=== PATIENT | female | born 1960 | race American Indian/Alaskan Native ===

== ENCOUNTER 2018-12-12 13:52 | Outpatient (CLI) | payer BC ==
--- NOTE | 2018-12-12 15:22 | Mammography Report ---
BILATERAL DIGITAL SCREENING MAMMOGRAMS WITH CAD INDICATION: Screening. COMPARISONS: None available. However, she indicated that she had had a mammogram 3 years ago at [facility].In addition to standard review, the examination was analyzed for possible abnormalities us ing a computer-assisted detection device (iCAD). FINDINGS: Craniocaudal and mediolateral oblique views of both breasts were obtained using 2-D digital acquisition. The breast tissue is heterogeneously dense, which may obscure small masses. Bilateral parenchymal asymmetries require comparison with the prior mammogram or additional imaging. No architectural distortion or suspicious calcifications. IMPRESSION: Comparison with the previous mammogram is required. We will attempt to obtain a prior mammogram for c omparison. If we did not obtain a prior mammogram within 30 days, a revised report will be issued rec ommending a recall for additional imaging. Please be advised that the patient should not schedule an appointment for return until adequate time (at least 2 weeks) has passed breast to obtain the prior m ammogram. BI-RADS CATEGORY 0: INCOMPLETE - NEED ADDITIONAL IMAGING EVALUATION AND/OR PRIOR MAMMOGRAMS FOR COMP ARISON Information is entered into a reminder system for a target due date for the next mammogram. The resul ts and recommendations were sent to the patient by mail. Signer Name: Malachi Abdalla MD Signed: 12/12/2018 3:18 PM Workstation Name: [id number]
== END 2018-12-12 13:53 | disposition home or self-care (01) ==
LOC: SPVWC 13:52
PROVIDERS: ATTEND Internal Medicine
DX: Z12.31 Encounter for screening mammogram for malignant neoplasm of breast (principal)
CPT/HCPCS: 77067

== ENCOUNTER 2020-03-16 10:28 | Outpatient (CLI) | payer BC ==
--- NOTE | 2020-03-17 08:36 | Mammography Report ---
DIGITAL SCREENING MAMMOGRAM WITH CAD, 03/16/2020 INDICATION: Routine screening mammography. TECHNIQUE: Digital bilateral 2D mammography was obtained in the craniocaudal and mediolateral obliq ue projections. This examination was interpreted with the benefit of Computer-Aided Detection analysi s. COMPARISON: 12/12/2018. FINDINGS: Breast Density: There are scattered areas of fibroglandular density. There is no evidence of dominant mass, suspicious calcifications or architectural distortion in eithe r breast. IMPRESSION: Follow up recommendation: Routine yearly BI-RADS Category 1: Negative. A "normal" or negative report should not discourage follow up or biopsy of a clinically significant f inding. A written summary of these findings will be mailed to the patient. The patient will be entered into a mammography reporting system which will generate a reminder letter for the patient's next appointmen t at the appropriate interval. The [employer] recommends yearly mammograms starting at age 40 and continuing as l oriana as a woman is in good health. Breast MRI is recommended for women with an approximate 20-25% or greater lifetime risk of breast cancer, including women with a strong family history of breast or ova julio cancer or who have been treated for Hodgkin's disease. Signer Name: Butch Lizama MD Signed: 03/17/2020 8:31 AM Workstation Name: [id number]
== END 2020-03-16 10:29 | disposition home or self-care (01) ==
LOC: SPVWC 10:28
PROVIDERS: ATTEND Internal Medicine
DX: Z12.31 Encounter for screening mammogram for malignant neoplasm of breast (principal); N64.89 Other specified disorders of breast
CPT/HCPCS: 77067